=== PATIENT | male | born 1940 | race Caucasian/White ===

== ENCOUNTER 2017-03-23 01:19 | Inpatient (IN) | payer MEDICARE ==
[~2017-03-23] VITALS: Ht 182.9 cm; Wt 67.0 kg
[~2017-03-23 01:19] MED LIST: ANUCORT-HC25 MG RE; BAYER ASA325 MG PO; NAPROSYN500 MG OR; PERCOCET1 TA4 OR; QUALAQUIN324 MG PO; VALIUM2 MG OR
--- NOTE | 2017-03-23 01:20 | NUR ---
RECEIVED PT VIA EMS. 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
[2017-03-23 02:03] LABS: URINE BILIRUBIN - DIPSTICK NEGATIVE (NEGATIVE); URINE BLOOD DIPSTICK TRACE-INTACT (NEGATIVE); URINE CLARITY CLEAR; URINE COLOR YELLOW; URINE GLUCOSE - DIPSTICK NEGATIVE (NEGATIVE); URINE KETONE NEGATIVE (NEGATIVE); URINE LEUK ESTERASE NEGATIVE (NEGATIVE); URINE NITRITE - DIPSTICK NEGATIVE (Negative); URINE PROTEIN - DIPSTICK NEGATIVE (NEG-TRACE); URINE UROBILINOGEN - DIPSTICK 0.2 E.U./dL (0.2)
[2017-03-23 02:11] LABS: ACT PARTIAL THROMBO TIME 30.6 SECONDS (20.0-32.5); INTERNATIONAL NORMALIZED RATIO 1.6 RATIO (0.7-1.3); PROTHROMBIN TIME 18.6 SECONDS (9.0-12.5)
--- NOTE | 2017-03-23 02:15 | NUR ---
PT STOOD UP TO VOID. C/O INCREASED H/A. HR ELEVATED TO 120'S AFIB. ONCE PT LAYING DOWN, HR 80'S AFIB, DECREASE IN H/A.
[2017-03-23] MEDS ORDERED: QUALAQUIN324 MG PO (02:24)
[2017-03-23] MEDS ORDERED: ADULT ASPIRIN E81 MG PO (02:25)
[2017-03-23] MEDS ORDERED: METOPROLOL SUCC25 MG PO (02:26)
[2017-03-23] MEDS ORDERED: COUMADIN5 MG PO (02:27)
[2017-03-23 02:35] LABS: HEMATOCRIT 41.9 % (39.0-50.0); HEMOGLOBIN 13.6 g/dl (14.0-18.0); IMMATURE GRANULOCYTES 0.3 % (0.0-1.0); MEAN CELL VOLUME 93.5 fL CALC (80.0-100.0); MEAN CORPUSCULAR HGB 30.4 pG CALC (26.0-32.0); MEAN CORPUSCULAR HGB CONC 32.5 g/L CALC (32.0-36.0); RED BLOOD COUNT 4.48 mill/uL (4.70-6.10)
[2017-03-23 02:44] LABS: BUN 14 mg/dL (8-23); BUN/CREATININE RATIO 16 (12-20 (CALC)); CARBON DIOXIDE 25 mmol/l (22-30); CHLORIDE 110 mmol/l (95-108); CREATININE 0.9 mg/dL (0.7-1.3); GFR > 60 ML/MIN (>=60 (CALC)); GFR FOR AFR.AMER. > 60 ML/MIN (>=60 (CALC)); GLUCOSE 114 mg/dL (82-115); POTASSIUM 3.8 mmol/l (3.5-5.1); SODIUM 148 mmol/l (137-146)
[2017-03-23 02:45] LABS: ALBUMIN 4.2 g/dL (3.2-5.0); ALKALINE PHOSPHATASE 92 u/l (38-126); ANION GAP 17 (6-22 (CALC)); BILIRUBIN, TOTAL 0.5 mg/dL (0.0-1.4); CALCIUM 9.4 mg/dL (8.4-10.2); SGOT/AST 45 u/l (19-48); SGPT/ALT 30 u/l (11-66)
[2017-03-23 02:56] LABS: MYOGLOBIN 30 ng/mL (0 - 121)
--- NOTE | 2017-03-23 03:05 | NUR ---
PT INFORMED OF ADMISSION. DENIED CHEST PAIN AT THIS TIME.
--- NOTE | 2017-03-23 03:27 | NUR ---
REPORT CALLED TO ARIA MAXWELL.
[2017-03-23 03:30] VITALS: BP 148/87
--- NOTE | 2017-03-23 03:33 | NUR ---
PT TO RM 272 WITH ASTER MAXWELL ON TELE. PT COND STABLE.
--- NOTE | 2017-03-23 04:00 | NUR ---
PATIENT ADMITTED FROM ER VIA STRETCHER WITH ER STAFF IN ATTENDANCE. PATIENT ASSISTED TO THE BED AND WEIGHT OBTAIN VIA BED SCALE. PATIENT IS AWAKE ALERT AND ORIENTEDX3. PATIENT DENIES ANY CHEST PAIN OR PALPATATIONS AT THIS TIME. TELE MONITORING DEVICE IN PLACE. HEP LOCK TO LEFT HAND INTACT AND APPEARS HEALTHY AT THIS TIME. PATIENT DOES C/O JEOVANNY LE PAIN-STATES THAT HE HAS STENTS-ONE IN EACH LEG FOR POOR CIRCULATION. PULSE ARE WEAK AND FEET ARE COLD. PATIENT REFUSING TEDS AT THIS TIME-STATES THAT IT HURTS HIS LEGS. PATIENT IS VOIDING CLEAR YELLOW URINE IN URINAL. STATES NO BM SINCE LAST TUESDAY-03/18 AND THAT HE DOES TAKE LAX AND STOOL SOFTNERS. ABD IS SOFT WITH ACTIVE BS PRESENT. PATIENT ORIENTED TO ROOM AND SURROUNDINGS. INSTRUCTED ON USE OF NURSE CALL LIGHT SYSTEM AND TV REMOTE. SAFETY PRECAUTIONS REVIEWED WITH PATIENT. CALL LIGHT IN REACH. WILL CONT TO MONITOR
--- NOTE | 2017-03-23 05:00 | NUR ---
PATIENT C/O SEVERE LEG CRAMPING JEOVANNY. PATIENT PROVIDED WITH WARM COMPRESS'S FOR COMFORT. PATIENT STATES THAT HE TAKES QUININE AT HOME. CALL LIGHT IN REACH. WILL CONT TO MONITOR.
--- NOTE | 2017-03-23 06:45 | NUR ---
RECIEVED CALL FROM USMAN IN THE ER TO REPORT THAT PATIENT IS NOW IN SR-61. WILL GET EKG. WILL CONT TO MONITOR.
[2017-03-23 07:30] VITALS: BP 100/62
[2017-03-23 11:27] VITALS: BP 115/59
--- NOTE | 2017-03-23 11:51 | NUR ---
PT SITTING ON SIDE OF BED HAVING LUNCH; DENIES PAIN; IVF INFUSING WITHOUT DIFFICULTY; CALL GRANT WITHIN REACH; WILL CONTINUE TO MONITOR.
[2017-03-23] MEDS ORDERED: WARFARIN SODIU2.5 MG PO (12:25)
--- NOTE | 2017-03-23 12:55 | NUR ---
DR. LONG IN TO SEE PT; PLAN OF CARE DISCUSSED
--- NOTE | 2017-03-23 13:04 | NUR ---
PT VISITING WITH SPOUSE; NO COMPLAINTS VOICED; CALL GRANT WITHIN REACH; WILL CONTINUE TO MONITOR.
--- NOTE | 2017-03-23 14:22 | NUR ---
Discharge instructions given. Patient verbalizes understanding of same. Discharged in stable condition via Wheelchair to Home with family. All belongings sent with pt.
[2017-03-23 16:15] LABS: CHOLESTEROL HDL RATIO 10.4 (<4.4 (CALC)); MAGNESIUM 2.2 mg/dL (1.6-2.3)
== END 2017-03-23 14:20 | disposition home or self-care (01) | DRG 313 ==
LOC: ED 01:19 → ED-I 02:50 → ED 03:14 → MS2 03:15
PROVIDERS: Emergency Medicine; Nurse Practitioner Family; ADMIT Internal Medicine; ATTEND Internal Medicine
DX: R07.9 Chest pain, unspecified (principal); I48.0 Paroxysmal atrial fibrillation; I10 Essential (primary) hypertension; E78.5 Hyperlipidemia, unspecified; G25.81 Restless legs syndrome; G89.29 Other chronic pain; I73.9 Peripheral vascular disease, unspecified; K59.09 Other constipation; M54.5 Low back pain; Z79.01 Long term (current) use of anticoagulants; Z95.820 Peripheral vascular angioplasty status with implants and grafts; Z79.82 Long term (current) use of aspirin; Z79.899 Other long term (current) drug therapy; Z86.73 Personal history of transient ischemic attack (TIA), and cerebral infarction without residual deficits

== ENCOUNTER 2019-11-19 07:08 | Day surgery (SDC) | payer MEDICARE ==
[~2019-11-19 07:08] MED LIST changes: +ADULT ASPIRIN E81 MG PO; +B121000 MCG PO; +COUMADIN5 MG PO; +HYDROCO/APAP1 TA9 PO; +METOPROLOL SUCC25 MG PO; +NITROGLYCER0.2 MG/H1 TD; +WARFARIN SODIU2.5 MG PO
[2019-11-19 09:58] VITALS: BP 166/79
== END 2019-11-19 09:55 | disposition home or self-care (01) ==
LOC: ENDO 07:08 → ORM 08:30 → ENDO 08:30
PROVIDERS: ATTEND Surgery
PROC: 0DB98ZX Excision of Duodenum, Via Natural or Artificial Opening Endoscopic, Diagnostic (ICD-10-PCS; principal; 2019-11-19)
PROC: 0DB78ZX Excision of Stomach, Pylorus, Via Natural or Artificial Opening Endoscopic, Diagnostic (ICD-10-PCS; 2019-11-19)
PROC: 0DB48ZX Excision of Esophagogastric Junction, Via Natural or Artificial Opening Endoscopic, Diagnostic (ICD-10-PCS; 2019-11-19)
DX: K29.80 Duodenitis without bleeding (principal); K29.50 Unspecified chronic gastritis without bleeding; K22.70 Barrett's esophagus without dysplasia; I48.91 Unspecified atrial fibrillation; Z79.01 Long term (current) use of anticoagulants; Z11.59 Encounter for screening for other viral diseases

== ENCOUNTER 2020-06-09 08:07 | Emergency (ER) | payer MEDICARE ==
[~2020-06-09] VITALS: Ht 182.9 cm; Wt 68.2 kg
[2020-06-09 09:03] LABS: HEMATOCRIT 43.2 % (39.0-50.0); HEMOGLOBIN 13.3 g/dl (14.0-18.0); IMMATURE GRANULOCYTES 0.2 % (0.0-5.0); MEAN CELL VOLUME 94.7 fL CALC (80.0-100.0); MEAN CORPUSCULAR HGB 29.2 pG CALC (26.0-32.0); MEAN CORPUSCULAR HGB CONC 30.8 g/dL CAL (32.0-36.0); NEUT# 11.86 thou/uL (1.82-7.42); RED BLOOD COUNT 4.56 mill/uL (4.70-6.10); RED CELL DISTRI WIDTH 14.1 % (11.5-15.5)
[2020-06-09 09:26] LABS: ALBUMIN 4.2 g/dL (3.2-5.0); ALKALINE PHOSPHATASE 89 u/l (38-126); ANION GAP 15 (6-22 (CALC)); BILIRUBIN, TOTAL 0.5 mg/dL (0.0-1.4); BUN 15 mg/dL (8-23); BUN/CREATININE RATIO 17 (12-20 (CALC)); CARBON DIOXIDE 26 mmol/l (22-30); CHLORIDE 106 mmol/l (95-108); CREATININE 0.9 mg/dL (0.7-1.3); GFR > 60 ML/MIN (>=60 (CALC)); GFR FOR AFR.AMER. > 60 ML/MIN (>=60 (CALC)); LIPASE 178 u/l (23-300); MAGNESIUM 2.1 mg/dL (1.6-2.3); POTASSIUM 4.3 mmol/l (3.5-5.1); SGOT/AST 32 u/l (19-48); SODIUM 143 mmol/l (137-146); TOTAL PROTEIN 7.6 g/dL (6.3-8.2)
[2020-06-09] MEDS ORDERED: ONDANSETRON4 MG PO (09:40)
[2020-06-09 10:26] VITALS: BP 137/63
== END 2020-06-09 10:43 | disposition home or self-care (01) ==
LOC: ED 08:07
PROVIDERS: Family Medicine
DX: R55 Syncope and collapse (principal); R11.2 Nausea with vomiting, unspecified; R19.7 Diarrhea, unspecified; I48.91 Unspecified atrial fibrillation; Z20.822 Contact with and (suspected) exposure to COVID-19

== ENCOUNTER 2021-03-21 18:56 | Emergency (ER) | payer MEDICARE ==
[~2021-03-21] VITALS: Ht 182.9 cm; Wt 67.7 kg
[~2021-03-21 18:56] MED LIST changes: +ONDANSETRON4 MG PO
[2021-03-21 19:41] VITALS: BP 177/77
== END 2021-03-21 19:55 | disposition home or self-care (01) ==
LOC: ED 18:56
DX: L76.21 Postprocedural hemorrhage of skin and subcutaneous tissue following a dermatologic procedure (principal); I48.91 Unspecified atrial fibrillation; K21.9 Gastro-esophageal reflux disease without esophagitis; E78.00 Pure hypercholesterolemia, unspecified; Z85.828 Personal history of other malignant neoplasm of skin

== ENCOUNTER 2021-08-30 13:35 | Emergency (ER) | payer MEDICARE ==
[2021-08-30] VITALS (13 sets, daily range): BP systolic 147–203; BP diastolic 54–87
[~2021-08-30] VITALS: Ht 180.3 cm; Wt 64.0 kg
[2021-08-30 14:33] LABS: HEMATOCRIT 34.9 % (39.0-50.0); HEMOGLOBIN 11.1 g/dl (14.0-18.0); IMMATURE GRANULOCYTES 0.2 % (0.0-5.0); MEAN CELL VOLUME 95.4 fL CALC (80.0-100.0); MEAN CORPUSCULAR HGB 30.3 pG CALC (26.0-32.0); MEAN CORPUSCULAR HGB CONC 31.8 g/dL CAL (32.0-36.0); NEUT# 2.92 thou/uL (1.82-7.42); RED BLOOD COUNT 3.66 mill/uL (4.70-6.10); RED CELL DISTRI WIDTH 14.1 % (11.5-15.5)
[2021-08-30 14:40] LABS: URINE BILIRUBIN - DIPSTICK NEGATIVE (NEGATIVE); URINE BLOOD DIPSTICK NEGATIVE (NEGATIVE); URINE COLOR YELLOW; URINE GLUCOSE - DIPSTICK NEGATIVE (NEGATIVE); URINE KETONE NEGATIVE (NEGATIVE); URINE LEUK ESTERASE NEGATIVE (NEGATIVE); URINE PH 5.5 (4.5-8.0); URINE PROTEIN - DIPSTICK NEGATIVE (NEG-TRACE); URINE SPECIFIC GRAVITY <=1.005; URINE UROBILINOGEN - DIPSTICK 0.2 E.U./dL (0.2)
[2021-08-30 14:50] LABS: ALBUMIN 3.8 g/dL (3.2-5.0); ALKALINE PHOSPHATASE 86 u/l (38-126); ANION GAP 11 (6-22 (CALC)); BUN 11 mg/dL (8-23); BUN/CREATININE RATIO 13 (12-20 (CALC)); CARBON DIOXIDE 27 mmol/l (22-30); CHLORIDE 107 mmol/l (95-108); CREATININE 0.8 mg/dL (0.7-1.3); GFR > 60 ML/MIN (>=60 (CALC)); GFR FOR AFR.AMER. > 60 ML/MIN (>=60 (CALC)); LIPASE 183 u/l (23-300); POTASSIUM 3.8 mmol/l (3.5-5.1); SGOT/AST 36 u/l (19-48); SODIUM 140 mmol/l (137-146); TOTAL PROTEIN 7.5 g/dL (6.3-8.2)
[2021-08-30 14:55] LABS: BILIRUBIN, TOTAL 0.2 mg/dL (0.0-1.4)
[2021-08-30 14:56] LABS: URINE NITRITE - DIPSTICK NEGATIVE (Negative)
[2021-08-30 15:04] LABS: ACT PARTIAL THROMBO TIME 31.2 SECONDS (20.0-32.5); INTERNATIONAL NORMALIZED RATIO 2.1 RATIO (0.7-1.3); PROTHROMBIN TIME 20.8 SECONDS (9.0-12.5)
== END 2021-08-30 16:55 | disposition home or self-care (01) ==
LOC: ED 13:35
DX: I10 Essential (primary) hypertension (principal); F41.9 Anxiety disorder, unspecified; I48.91 Unspecified atrial fibrillation; K21.9 Gastro-esophageal reflux disease without esophagitis; E78.00 Pure hypercholesterolemia, unspecified; Z79.01 Long term (current) use of anticoagulants; Z20.822 Contact with and (suspected) exposure to COVID-19

== ENCOUNTER 2021-09-26 20:49 | Emergency (ER) | payer MEDICARE ==
[2021-09-26] VITALS (11 sets, daily range): BP systolic 127–192; BP diastolic 53–77
[~2021-09-26] VITALS: Ht 180.3 cm; Wt 63.0 kg
[2021-09-26 21:37] LABS: HEMATOCRIT 39.6 % (39.0-50.0); HEMOGLOBIN 12.3 g/dl (14.0-18.0); MEAN CELL VOLUME 93.8 fL CALC (80.0-100.0); MEAN CORPUSCULAR HGB 29.1 pG CALC (26.0-32.0); MEAN CORPUSCULAR HGB CONC 31.1 g/dL CAL (32.0-36.0); NEUT# 2.91 thou/uL (1.82-7.42); RED BLOOD COUNT 4.22 mill/uL (4.70-6.10)
[2021-09-26 21:55] LABS: ALKALINE PHOSPHATASE 98 u/l (38-126); ANION GAP 9 (6-22 (CALC)); BILIRUBIN, TOTAL 0.2 mg/dL (0.0-1.4); BUN 15 mg/dL (8-23); BUN/CREATININE RATIO 18 (12-20 (CALC)); CARBON DIOXIDE 27 mmol/l (22-30); CHLORIDE 106 mmol/l (95-108); CREATININE 0.9 mg/dL (0.7-1.3); GFR > 60 ML/MIN (>=60 (CALC)); GFR FOR AFR.AMER. > 60 ML/MIN (>=60 (CALC)); POTASSIUM 4.1 mmol/l (3.5-5.1); SGOT/AST 36 u/l (19-48); SODIUM 138 mmol/l (137-146); TOTAL PROTEIN 7.7 g/dL (6.3-8.2)
[2021-09-26 22:07] LABS: MYOGLOBIN 42 ng/mL (0 - 121)
== END 2021-09-26 23:54 | disposition home or self-care (01) ==
LOC: ED 20:49
PROVIDERS: Emergency Medicine
DX: I10 Essential (primary) hypertension (principal); I48.91 Unspecified atrial fibrillation; K21.9 Gastro-esophageal reflux disease without esophagitis; E78.00 Pure hypercholesterolemia, unspecified

== ENCOUNTER 2021-10-29 08:03 | Emergency (ER) | payer MEDICARE ==
[2021-10-29] VITALS (8 sets, daily range): BP systolic 145–185; BP diastolic 75–100
[~2021-10-29] VITALS: Ht 180.3 cm; Wt 64.5 kg
[2021-10-29 08:58] LABS: HEMATOCRIT 39.6 % (39.0-50.0); HEMOGLOBIN 12.6 g/dl (14.0-18.0); IMMATURE GRANULOCYTES 0.2 % (0.0-5.0); MEAN CELL VOLUME 94.5 fL CALC (80.0-100.0); MEAN CORPUSCULAR HGB 30.1 pG CALC (26.0-32.0); MEAN CORPUSCULAR HGB CONC 31.8 g/dL CAL (32.0-36.0); NEUT# 3.73 thou/uL (1.82-7.42); RED BLOOD COUNT 4.19 mill/uL (4.70-6.10); RED CELL DISTRI WIDTH 14.3 % (11.5-15.5)
[2021-10-29] MEDS ORDERED: METOPROL TAR25 MG PO (08:58)
[2021-10-29] MEDS ORDERED: VALSARTAN40 MG (08:59)
[2021-10-29 09:11] LABS: ALBUMIN 4.4 g/dL (3.2-5.0); ALKALINE PHOSPHATASE 101 u/l (38-126); AMYLASE 118 u/l (30-110); ANION GAP 12 (6-22 (CALC)); BILIRUBIN, TOTAL 0.2 mg/dL (0.0-1.4); BUN 11 mg/dL (8-23); BUN/CREATININE RATIO 13 (12-20 (CALC)); CARBON DIOXIDE 31 mmol/l (22-30); CHLORIDE 103 mmol/l (95-108); CREATININE 0.9 mg/dL (0.7-1.3); GFR FOR AFR.AMER. > 60 ML/MIN (>=60 (CALC)); GFR OTHER RACES > 60 ML/MIN (>=60 (CALC)); LIPASE 167 u/l (23-300); POTASSIUM 4.2 mmol/l (3.5-5.1); SGOT/AST 41 u/l (19-48); SODIUM 142 mmol/l (137-146); TOTAL PROTEIN 8.4 g/dL (6.3-8.2)
[2021-10-29 09:14] LABS: ACT PARTIAL THROMBO TIME 40.1 SECONDS (20.0-32.5)
[2021-10-29 09:23] LABS: INTERNATIONAL NORMALIZED RATIO 4.2 RATIO (0.7-1.3)
[2021-10-29] MEDS ORDERED: PROTONIX40 M2 PO (12:51)
== END 2021-10-29 13:47 | disposition home or self-care (01) ==
LOC: ED 08:03
DX: K29.60 Other gastritis without bleeding (principal); K21.9 Gastro-esophageal reflux disease without esophagitis; I10 Essential (primary) hypertension; I48.91 Unspecified atrial fibrillation; E78.00 Pure hypercholesterolemia, unspecified; Z79.01 Long term (current) use of anticoagulants; Z20.822 Contact with and (suspected) exposure to COVID-19
CPT/HCPCS: S0164